=== PATIENT | female | born 1970 | race Caucasian/White ===

== ENCOUNTER 2019-03-25 04:30 | Emergency (ER) | payer MEDICARE, MEDICAID ==
[~2019-03-25] VITALS: Ht 168.9 cm; Wt 136.1 kg
[2019-03-25] MEDS ORDERED: HYDROcodone/APAP 5 MG/325 MG (LORTAB) TAB PO ONE (04:45)
[2019-03-25] MEDS ORDERED: hydrOXYzine (VISTARIL) 25 MG capsule/tablet PO ONE (04:45)
[2019-03-25] MEDS ORDERED: LIDOCAINE 2% VISCOUS 15 ML UDC PO ONE (04:45)
--- NOTE | 2019-03-25 04:48 | ED EENT ---
History of Present Illness General Stated Complaint: TOOTH ABCESS Source: patient Exam Limitations: no limitations History of Present Illness Date Seen by Provider: Mar 25, 2019 Time Seen by Provider: 04:36 Initial Comments Patient presents to ER by private conveyance with her significant other chief complaint of bilateral lower mandibular molars being impacted causing pain and some moderate swelling. She's pushed around with has not had any abscess that she could drain on her own. This has been going on for several days, progressively worsening. She has not seen a dentist yet. She's not been on antibiotics recently and has no and/or allergy to antibiotic. She's tried Tylenol, ibuprofen, topical gels alcohol with only minimal relief. Patient has a history of agoraphobia, high blood pressure, hypothyroidism since moving from [place], [place] to [place], [place] she has not established care with a physician. She is not on any medications at this time. She does not take blood thinners. Allergies and Home Medications Allergies Coded Allergies: Codeine (Verified Allergy, Unknown, 09/09/06) Patient Home Medication List Home Medication List Reviewed: Yes Review of Systems Review of Systems Constitutional: No chills, No fever, No malaise Eyes: Denies Blurred Vision, Denies Drainage Ears: Denies Dizziness, Denies Pain Nose: denies clots, denies congestion Mouth: see HPI, pain, swelling Past Jrcffbl-Zhjmzy-Mvhero Hx Patient Social History Alcohol Use: Denies Use Recreational Drug Use: No Recent Foreign Travel: No Contact w/Someone Who Travel: No Physical Exam Height, Weight, BMI Height: '" Weight: lbs. oz. kg; BMI Method: General Appearance: WD/WN, mild distress Eyes: bilateral eye normal inspection, bilateral eye PERRL, bilateral eye EOMI Ears: bilateral ear auricle normal, bilateral ear canal normal, bilateral ear TM normal Nose: normal inspection; No active bleeding Mouth/Throat: other (extensive dental caries bilateral lower molars with some mild gingival swelling but no palpable abscess.) Neck: full range of motion, normal inspection Progress/Results/Core Measures Results/Orders My Orders Orders - MODESTO CAMACHO Hydroxyzine Cap/Tab (Vistaril) (03/25/19 04:45) Hydrocodone/Apap 5/325 Tablet (Lortab 5 (03/25/19 04:45) Lidocaine 2% Viscous 15 Ml (Xylocaine Vi (03/25/19 04:45) Progress Progress Note : Time: 04:45 Progress Note Viscous lidocaine, hydrocodone, put her on some antibiotics and have her follow- up with a dentist in one week. Departure Impression Primary Impression: Dental abscess Disposition: 01 HOME, SELF-CARE Condition: Stable Departure-Patient Inst. Decision time for Depature: 04:46 Referrals: NO,LOCAL PHYSICIAN (PCP) Primary Care Physician Patient Instructions: Tooth Abscess (DC) Add. Discharge Instructions: Start taking the amoxicillin one capsule 3 times a day. Plan to follow up with a dentist in 1-2 weeks. Continue to use ibuprofen 800 mg up to every 8 hours as needed for pain. Warm compresses can help. Use the viscous lidocaine, 1 g on some gauze applied directly over the tooth that hurts every 2 hours as necessary for pain. Use the hydrocodone one to 2 tablets every 6 hours as needed for breakthrough pain that you cannot tolerate. Scripts Amoxicillin (Amoxicillin) 500 Mg Capsule 500 MG PO TID for 7 Days, #21 CAP 0 Refills Prov: MODESTO CAMACHO 03/25/19 Hydrocodone Bit/Acetaminophen (Hydrocodone/Acetaminophen 5/325mg Tablet) 1 Tab Tab 1-2 EACH PO Q6H PRN for BREAKTHROUGH PAIN MDD 10, #15 TAB 0 Refills Prov: MODESTO CAMACHO 03/25/19 MODESTO CAMACHO Mar 25, 2019 04:48
[2019-03-25] MEDS ORDERED: AMOX500C2 PO (04:50)
[2019-03-25] MEDS ORDERED: ACHD5005 PO (04:50)
[2019-03-25] MEDS ORDERED: FLUC200T PO (04:58)
[2019-03-25 05:02] VITALS: BP 201/166
== END 2019-03-25 04:58 | disposition home or self-care (01) ==
LOC: EDUNIT# 04:30 → ER FS 04:32
DX: K04.7 Periapical abscess without sinus (principal); E03.9 Hypothyroidism, unspecified; F40.00 Agoraphobia, unspecified; Z88.5 Allergy status to narcotic agent
CPT/HCPCS: 99283

== ENCOUNTER 2019-04-08 10:46 | Emergency (ER) | payer MEDICARE, MEDICAID ==
[~2019-04-08] VITALS: Ht 170.2 cm; Wt 136.1 kg
[~2019-04-08 10:46] MED LIST: ACHD5005 PO; AMOX500C2 PO; FLUC200T PO
--- NOTE | 2019-04-08 11:18 | ED EENT ---
History of Present Illness General Chief Complaint: Facial Problems Stated Complaint: FACIAL SWELLING Source: patient, RN notes reviewed Exam Limitations: no limitations History of Present Illness Date Seen by Provider: April 08, 2019 Time Seen by Provider: 11:13 Initial Comments Patient presents c/ c/o worsening right lower dental pain and facial swelling since last PM. Apparently recently seen here c/ similar symptoms on her left side and was prescribed Amoxil. States she called her dentist today and he wanted her evaluated here and he might be able to get her in later this afternoon. Timing/Duration: gradual (since last PM) Severity: severe Location: mouth, facial Prearrival Treatment: other (none) Modifying Factors: Improves With Other (nothing helps; worsens c/ time.) Associated Symptoms: denies symptoms (x/ as noted. ), facial pain/swelling, tooth pain Allergies and Home Medications Allergies Coded Allergies: codeine (Verified Allergy, Unknown, 09/09/06) prednisone (Verified Adverse Reaction, Unknown, agitation, 04/08/19) Home Medications Amoxicillin 500 Mg Capsule, 500 MG PO TID Prescribed by: MODESTO CAMACHO on 03/25/19 0450 Clindamycin HCl 150 Mg Capsule, 300 MG PO Q6H Prescribed by: GELY FOSTER on 04/08/19 1242 Fluconazole 200 Mg Tablet, 200 MG PO ONCE Prescribed by: MODESTO CAMACHO on 03/25/19 0458 Hydrocodone Bit/Acetaminophen 1 Tab Tab, 1-2 EACH PO Q6H PRN for BREAKTHROUGH PAIN Prescribed by: MODESTO CAMACHO on 03/25/19 0450 Patient Home Medication List Home Medication List Reviewed: Yes Review of Systems Review of Systems Constitutional: see HPI Mouth: see HPI, pain (right lower), swelling (right lower) : No All Other Systems Reviewed Negative Unless Noted: Yes (Negative excepted noted.) Physical Exam Vital Signs Vital Signs - First Documented 04/08/19 11:15 Temp 99.0 Pulse 84 Resp 18 B/P (MAP) 173/133 (146) Pulse Ox 95 O2 Delivery Room Air Height, Weight, BMI Height: 5'6.50" Weight: 300lbs. oz. 136.361400oh; BMI Method:Actual General Appearance: WD/WN, moderate distress, obese Mouth/Throat: other (right lower mandible swelling in area of large cavity; poor dentation noted in teeth remaining. ) Cardiovascular: regular rate, rhythm Respiratory: no respiratory distress Gastrointestinal: other (morbidly obese) Neurologic/Psychiatric: no motor/sensory deficits, alert, depressed affect Skin: warm/dry; No rash Progress/Results/Core Measures Results/Orders My Orders Orders - GELY FOSTER DO Clindamycin Capsule (Cleocin Capsule) (04/08/19 11:30) Ct Maxillofacial Wo (04/08/19 11:16) Ketorolac Injection (Toradol Injection) (04/08/19 11:45) Medications Given in ED Vital Signs/I&O Progress Progress Note : Progress Note Seemed improved pain dumont p/ the injection of Toradol. Diagnostic Imaging Diagonstic Imaging: CT Plain Films/CT/US/NM/MRI: facial bones (see report) Departure Impression Primary Impression: Dental infection c/ facial cellulitis Disposition: HOME, SELF-CARE Condition: Stable Departure-Patient Inst. Decision time for Depature: 12:36 [place] [facility] [place] Instructions: Tooth Abscess (DC) Add. Discharge Instructions: All discharge instructions reviewed with patient and/or family. Voiced understanding. NEED TO FOLLOW UP WITH A DENTIST FOR DEFINITIVE EVALUATION AND TREATMENT. RECOMMEND 600 mg OF IBUPROFEN &/OR 1000 mg OF TYLENOL EVERY 6 HOURS NEEDED FOR PAIN/SWELLING. DO NOT EXCEED 4000 mg OF TYLENOL IN A 24 HOUR PERIOD. CURRENTLY HAVE AN APPOINTMENT WITH JAHAIRA REZA ON APRIL 10 @ 11:00 IN REGARDS TO YOUR BLOOD PRESSURE. Scripts Clindamycin HCl (Clindamycin HCl) 150 Mg Capsule 300 MG PO Q6H for dental infection, #80 CAP 0 Refills Prov: GELY FOSTER DO 04/08/19 GELY FOSTER DO April 08, 2019 11:18
[2019-04-08] MEDS ORDERED: CLINDAMYCIN 150 MG (CLEOCIN) CAP PO ONE (11:30)
[2019-04-08] MEDS ORDERED: KETOROLAC 30 MG/ML VIAL IM ONE (11:45)
--- NOTE | 2019-04-08 12:30 | Diagnostic Imaging Report ---
PROCEDURE: CT maxillofacial without contrast. TECHNIQUE: Multiple contiguous axial images were obtained through the facial bones without the use of intravenous contrast. Auto Exposure Controls were utilized during the CT exam to meet ALARA standards for radiation dose reduction. INDICATION: Facial swelling. COMPARISON: None. FINDINGS: The pterygoid plates and mandible are intact. No orbital or maxillary sinus fractures are seen. No fluid levels are seen in the paranasal sinuses. There is extensive hyperostosis frontalis. The globes are intact. There is marked soft tissue edema overlying the right mandible. No soft tissue gas is seen. There is soft tissue density in this region, which may represent phlegmon. While no drainable fluid collection is seen, this is suboptimally evaluated in the absence of intravenous contrast. Multiple mildly prominent lymph nodes are seen which are likely reactive. No osseous erosion is seen. Multiple dental caries are noted, but no periapical lucencies are seen. IMPRESSION: 1. Marked inflammation/phlegmon in the soft tissues overlying the right mandible. No drainable fluid collection is seen on this noncontrast exam. There is no soft tissue gas. 2. Dental caries with no periapical lucency or cortical erosion seen. Dictated by: Dictated on workstation # [id number]
--- NOTE | 2019-04-08 12:30 | NUR ---
Noted patient's B/P 158/100, patient states she does not currently have a primary care provider and no longer has a prescription for her lisinopril. Offered to make patient an appointment with a [facility] provider in the clinic, patient is agreeable. [facility] clinic called by this RN, patient given appointment information for Wednesday, April 10, 2019 at 11:00 am with Nevaeh Lyon APRN.
[2019-04-08 12:39] VITALS: BP 173/133
--- NOTE | 2019-04-08 12:39 | NUR ---
Patient left ED against medical advice at this time, refused to sign AMA form, stated "maybe you should have gotten me a warm blanket sooner" as she was leaving. Patient had requested a warm blanket 10 minutes prior to leaving.
[2019-04-08] MEDS ORDERED: CLIN150C17 PO (12:42)
--- NOTE | 2019-04-08 12:49 | NUR ---
Called patient's phone number, phone answered by . 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
== END 2019-04-08 12:39 | disposition left against medical advice (07) ==
LOC: EDUNIT# 10:46 → ER FS 10:47
DX: K02.9 Dental caries, unspecified (principal); L03.211 Cellulitis of face; Z88.5 Allergy status to narcotic agent; Z88.8 Allergy status to other drugs, medicaments and biological substances
CPT/HCPCS: 70486; 96372

== ENCOUNTER 2019-09-12 17:56 | Emergency (ER) | payer MEDICARE, MEDICAID ==
[~2019-09-12] VITALS: Ht 171 cm; Wt 141.4 kg
[~2019-09-12 17:56] MED LIST changes: +CLIN150C17 PO
[2019-09-12] MEDS ORDERED: CEPHALEXIN 250 MG (KEFLEX) CAP PO ONE (18:15)
[2019-09-12] MEDS ORDERED: CLINDAMYCIN 150 MG (CLEOCIN) CAP PO ONE (18:15)
[2019-09-12] MEDS ORDERED: IBUPROFEN 800 MG (MOTRIN) TAB PO ONE (18:15)
[2019-09-12] MEDS ORDERED: lisINopril 20 MG (PRINIVIL) TABLET PO SCH (18:15)
[2019-09-12] MEDS ORDERED: HYDROcodone/APAP 5 MG/325 MG (LORTAB) TAB PO ONE (18:15)
[2019-09-12] MEDS ORDERED: cloNIDine 0.1 MG (CATAPRES) TAB PO ONE (18:15)
--- NOTE | 2019-09-12 18:17 | ED Integumentary General ---
General Chief Complaint: Skin/Wound Problems Stated Complaint: POSS INSECT BITE ON LT BREAST History of Present Illness Date Seen by Provider: Sep 12, 2019 Time Seen by Provider: 18:00 Initial Comments The patient is a 49-year-old female with a history of hypertension on lisinopril and clonidine as well as tobacco use. She is not diabetic. She presents with concern for acute onset of a painful, erythematous, swollen lesion to the lateral aspect of her left breast with onset about 3 days ago and worsening since then. No associated fevers, nausea or vomiting or other systemic symptoms. Patient states that the lesion looked like a small pimple at onset and simply grew bigger. She has been taking ibuprofen without relief of symptoms. Patient's blood pressure is elevated upon emergency department evaluation without signs or symptoms of acute end organ damage. She states she does not think she took her home blood pressure medication today as she was supposed to. Allergies and Home Medications Allergies Coded Allergies: codeine (Verified Allergy, Unknown, 09/09/06) prednisone (Verified Adverse Reaction, Unknown, agitation, 04/08/19) Home Medications Amoxicillin 500 Mg Capsule, 500 MG PO TID Prescribed by: MODESTO CAMACHO on 03/25/19 0450 Clindamycin HCl 150 Mg Capsule, 300 MG PO Q6H Prescribed by: GELY FOSTER on 04/08/19 1242 Fluconazole 200 Mg Tablet, 200 MG PO ONCE Prescribed by: MODESTO CAMACHO on 03/25/19 0458 Hydrocodone Bit/Acetaminophen 1 Tab Tab, 1-2 EACH PO Q6H PRN for BREAKTHROUGH PAIN Prescribed by: MODESTO CAMACHO on 03/25/19 0450 Patient Home Medication List Home Medication List Reviewed: Yes Review of Systems Review of Systems Constitutional: see HPI All Other Systems Reviewed Negative Unless Noted: Yes (Negative excepted noted.) Past Fbxpqjj-Rtyjze-Zxprgn Hx Past Med/Social Hx: Reviewed Nursing Past Med/Soc Hx Patient Social History Drug of Choice: marijuana Type Used: Cigarettes 2nd Hand Smoke Exposure: Yes Recent Foreign Travel: No Contact w/Someone Who Travel: No Recent Hopitalizations: No Seasonal Allergies Seasonal Allergies: No Past Medical History Surgeries: Yes Hysterectomy, Tonsillectomy Respiratory: No Cardiac: Yes Hypertension Neurological: No [employer]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 Head is normocephalic and atraumatic. Neck is supple and nontender. Oropharynx is moist. Lungs are clear to auscultation in all stations. There is a normal S1 and S2 without rubs or gallops and capillary refill is appropriate, less than 2 seconds globally. Evaluation of the left breast with nursing dish up person present demonstrates an approximately 5 cm indurated erythematous tender lesion to the lateral aspect of the left breast without any associated fluctuance. Evaluation of this lesion with bedside linear ultrasound demonstrates no fluid collection suggestive of absence and requiring drainage. Abdomen is soft, nontender and nondistended. Skin is warm and dry without cyanosis, clubbing or edema. Psychiatrically, the patient demonstrates appropriate mood and affect and is alert. Progress/Results/Core Measures Results/Orders My Orders Orders - RICHARD GILMORE MD Lisinopril Tablet (Zestril Tablet) (09/12/19 18:15) Clonidine Tablet (Catapres Tablet) (09/12/19 18:15) Hydrocodone/Apap 5/325 Tablet (Lortab 5 (09/12/19 18:15) Ibuprofen Tablet (Motrin Tablet) (09/12/19 18:15) Cephalexin Capsule (Keflex Capsule) (09/12/19 18:15) Clindamycin Capsule (Cleocin Capsule) (09/12/19 18:15) Progress Progress Note : Progress Note Clinical examination is suggestive of a localized cellulitis of the patient's lateral left breast. Bedside ultrasound reveals no fluid collection suggestive of abscess. We'll place the patient on oral antibiotics and we'll prescribe medication for pain. For elevated blood pressure, we'll give a dose of the patient's home blood pressure medications at this time. She is counseled to follow-up her blood pressure very closely in the clinic with her primary care physician in the next 2-4 days and she is also to follow-up with Gen. surgery in the clinic on Saturday or Saturday for further evaluation and treatment of her left breast lesion. She understands that if she feels worse is that of better or d evelops other new symptoms of concern that she will need to return immediately for reevaluation. All questions are answered. We will proceed with discharge home at this time. Departure Impression Primary Impression: Cellulitis of left breast Additional Impression: Benign essential hypertension Disposition: HOME, SELF-CARE Condition: Improved Departure-Patient Inst. Referrals: JAHAIRA REZA APRN (Family) Primary Care Physician LESLY STEWARD DO Patient Instructions: Cellulitis (Skin Infection), Adult (DC) Add. Discharge Instructions: Please follow up with your primary care physician in the next 2-4 days regarding your elevated blood pressure. Please follow up with Dr. Steward of general surgery at [facility] regarding your breast infection. Call his clinic on Saturday for a close follow-up appointment and tell the clinical appeals reviewer that per Dr. Steward you are to be worked in on Saturday or Saturday. Return immediately to the emergency department with worsening symptoms or other new concerns. Scripts Hydrocodone/Acetaminophen ([place] 5-325 Tablet) 1 Each Tablet 1 TAB PO Q4-6HR for Pain MDD 10 TABS, #12 TAB Prov: RICHARD GILMORE MD 09/12/19 Ibuprofen (Ibuprofen) 800 Mg Tablet 800 MG PO Q8H PRN for PAIN, #30 TAB 0 Refills Prov: RICHARD GILMORE MD 09/12/19 Cephalexin (Keflex) 500 Mg Capsule 500 MG PO Q6H for 10 Days, #40 CAP Prov: RICHARD GILMORE MD 09/12/19 Clindamycin HCl (Clindamycin HCl) 150 Mg Capsule 450 MG PO Q8H for 10 Days, #90 CAP Prov: RICHARD GILMORE MD 09/12/19 RICHARD GILMORE MD Sep 12, 2019 18:17
[2019-09-12] MEDS ORDERED: CEPH-507 PO (18:27)
[2019-09-12] MEDS ORDERED: HYDR-4226 PO (18:27)
[2019-09-12] MEDS ORDERED: IBUP-1780 PO (18:27)
[2019-09-12] MEDS ORDERED: CLIN150C17 PO (18:27)
[2019-09-12 18:45] VITALS: BP 186/144
== END 2019-09-12 18:45 | disposition home or self-care (01) ==
LOC: EDUNIT# 17:56 → ER FS 17:58
DX: N61.0 Mastitis without abscess (principal); I10 Essential (primary) hypertension; E03.9 Hypothyroidism, unspecified; Z88.5 Allergy status to narcotic agent; Z88.8 Allergy status to other drugs, medicaments and biological substances; Z87.39 Personal history of other diseases of the musculoskeletal system and connective tissue; Z77.22 Contact with and (suspected) exposure to environmental tobacco smoke (acute) (chronic); Z90.710 Acquired absence of both cervix and uterus; Z90.89 Acquired absence of other organs
CPT/HCPCS: 99283

== ENCOUNTER 2019-10-07 15:07 | Emergency (ER) | payer MEDICARE, MEDICAID ==
[~2019-10-07] VITALS: Ht 172.2 cm; Wt 138.4 kg
[~2019-10-07 15:07] MED LIST changes: +CEPH-507 PO; +HYDR-4226 PO; +IBUP-1780 PO
[2019-10-07] MEDS ORDERED: ASPIRIN 81 MG CHEW (CHILDREN'S ASA) PO ONE (16:00)
[2019-10-07] MEDS ORDERED: LORazepam INJ 2 MG/ML (ATIVAN) VIAL IVP PRN (16:00)
--- NOTE | 2019-10-07 16:30 | NUR ---
PER NOTIFIED PT'S URINE WAS VERY DARK.
[2019-10-07 16:39] LABS: BASOPHILS # (AUTO) 0.1 10^3/uL (0.0-0.1); BASOPHILS % (AUTO) 1 % (0-10); EOSINOPHILS # (AUTO) 0.1 10^3/uL (0.0-0.3); EOSINOPHILS % (AUTO) 1 % (0-10); HEMATOCRIT 43 % (35-52); HEMOGLOBIN 14.2 G/DL (11.5-16.0); LYMPHOCYTES # (AUTO) 2.7 X 10^3 (1.0-4.0); LYMPHOCYTES % (AUTO) 26 % (12-44); MEAN CORPUSCULAR HEMOGLOBIN 29 PG (25-34); MEAN CORPUSCULAR HGB CONC 33 G/DL (32-36); MEAN CORPUSCULAR VOLUME 89 FL (80-99); MEAN PLATELET VOLUME 9.8 FL (7.4-10.4); MONOCYTES # (AUTO) 1.1 X 10^3 (0.0-1.0); MONOCYTES % (AUTO) 10 % (0-12); NEUTROPHILS # (AUTO) 6.4 X 10^3 (1.8-7.8); NEUTROPHILS % (AUTO) 62 % (42-75); PLATELET COUNT 310 10^3/uL (130-400); RED CELL DISTRIBUTION WIDTH 14.6 % (10.0-14.5); WHITE BLOOD COUNT 10.3 10^3/uL (4.3-11.0)
[2019-10-07] MEDS ORDERED: NS IV 1000 ML 1,000 ML IV SCH (16:45)
[2019-10-07 16:47] LABS: AMPHETAMINE SCREEN, URINE POSITIVE (NEGATIVE); BARBITURATE SCREEN URINE NEGATIVE (NEGATIVE); BENZODIAZEPINES SCREEN URINE POSITIVE (NEGATIVE); CANNABINOID SCREEN, URINE POSITIVE (NEGATIVE); COCAINE SCREEN URINE NEGATIVE (NEGATIVE); METHADONE STAT NEGATIVE (NEGATIVE); METHAMPHETAMINE SCREEN URINE S POSITIVE (NEGATIVE); OPIATE SCREEN URINE NEGATIVE (NEGATIVE); OXYCODONE STAT NEGATIVE (NEGATIVE); PROPOXYPHENE STAT NEGATIVE (NEGATIVE); TRICYCLIC ANTIDEPRESSANTS SCRE POSITIVE (NEGATIVE)
--- NOTE | 2019-10-07 16:50 | Diagnostic Imaging Report ---
INDICATION: Altered mental status. Portable chest obtained at 4:36 p.m. FINDINGS: Heart and mediastinal silhouette are normal in appearance. The lungs are clear. There is no pneumothorax or pleural fluid. IMPRESSION: Negative chest. Dictated by: Dictated on workstation # [id number]
[2019-10-07 16:58] LABS: ALANINE AMINOTRANSFERASE 29 U/L (0-55); ALBUMIN 4.8 GM/DL (3.2-4.5); ALKALINE PHOSPHATASE 92 U/L (40-136); AMYLASE 17 U/L (25-125); BILIRUBIN,TOTAL 0.7 MG/DL (0.1-1.0); BUN/CREATININE RATIO 18; CARBON DIOXIDE 21 MMOL/L (21-32); CHLORIDE 109 MMOL/L (98-107); CREATININE SERUM 0.94 MG/DL (0.60-1.30); GFR ESTIMATED > 60; GLUCOSE 105 MG/DL (70-105); MAGNESIUM 2.2 MG/DL (1.6-2.4); SODIUM 142 MMOL/L (135-145); TOTAL PROTEIN 7.8 GM/DL (6.4-8.2)
--- NOTE | 2019-10-07 16:59 | ED General ---
General Chief Complaint: Altered Mental Status Stated Complaint: CONFUSION-FORGETFUL Nursing Triage Note: Pt to ED with . Pt poor historian. Pt reports not knowing what is going on. Pt reports having thoughts in head and doesn't know if they are real or not. reports pt did meth last night. Pt normally does "hot rails" but was in a place that the meth couldn't be smoked so put meth in a bottle of pop and pt drank. reports pt's behavior has not been normal since. reports pt does have a hx of mental illness. Pt reports not knowing what is real. "I don't know what I know." Pt denies suicidal ideation. Pt also reports chest pain. Nursing Sepsis Screen: No Definite Risk Source of Information: Patient Exam Limitations: No Limitations History of Present Illness Date Seen by Provider: Oct 07, 2019 Time Seen by Provider: 16:56 Initial Comments To ER with reports of confusion and forgetfulness. Her brings her here, patient states she doesn't know why she is here, she doesn't know what's going on other than she doesn't feel quite right. states that she doesn't recognize them were family members. This began yesterday. They have been using methamphetamine consistently day and night for the past 4 days, she hasn't slept for about 4 days. History of bipolar disorder. States that the only thing that gets her out of bed is methamphetamine but it's been taking more and more to get her to be able to get up and do things. Timing/Duration: 1-2 Days Associated Systoms: Denies Symptoms Allergies and Home Medications Allergies Coded Allergies: codeine (Verified Allergy, Unknown, 09/09/06) prednisone (Verified Adverse Reaction, Unknown, agitation, 04/08/19) Home Medications Amoxicillin 500 Mg Capsule, 500 MG PO TID Prescribed by: MODESTO CAMACHO on 03/25/19 0450 Cephalexin 500 Mg Capsule, 500 MG PO Q6H Prescribed by: RICHARD GILMORE on 09/12/19 182 Clindamycin HCl 150 Mg Capsule, 300 MG PO Q6H Prescribed by: GELY FOSTER on 04/08/19 1242 Clindamycin HCl 150 Mg Capsule, 450 MG PO Q8H Prescribed by: RICHARD GILMORE on 09/12/191826 Fluconazole 200 Mg Tablet, 200 MG PO ONCE Prescribed by: MODESTO CAMACHO on 03/25/19457 Hydrocodone Bit/Acetaminophen 1 Tab Tab, 1-2 EACH PO Q6H PRN for BREAKTHROUGH PAIN Prescribed by: MODESTO CAMACHO on 03/25/19449 Hydrocodone/Acetaminophen 1 Each Tablet, 1 TAB PO Q4-6HR Prescribed by: RICHARD GILMORE on 09/12/191826 Ibuprofen 800 Mg Tablet, 800 MG PO Q8H PRN for PAIN Prescribed by: RICHARD GILMORE on 09/12/191826 Patient Home Medication List Home Medication List Reviewed: Yes Review of Systems Review of Systems Constitutional: see HPI EENTM: see HPI Respiratory: no symptoms reported Cardiovascular: no symptoms reported Genitourinary: no symptoms reported Musculoskeletal: no symptoms reported Skin: no symptoms reported Psychiatric/Neurological: See HPI Hematologic/Lymphatic: No Symptoms Reported Immunological/Allergic: no symptoms reported Past Eijgxsp-Lipxqp-Emnmmv Hx Patient Social History Alcohol Use: Rarely Uses Recreational Drug Use: Yes Drug of Choice: marijuana, meth Smoking Status: Current Everyday Smoker Type Used: Cigarettes 2nd Hand Smoke Exposure: No Recent Foreign Travel: No Contact w/Someone Who Travel: No Recent Infectious Disease Expo: No Recent Hopitalizations: No Seasonal Allergies Seasonal Allergies: No Past Medical History Surgeries: Yes Hysterectomy, Tonsillectomy Respiratory: No Cardiac: Yes Hypertension Neurological: No 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 oz. 136.207017pr; 46.00 BMI Method:Stated General Appearance: No Apparent Distress, WD/WN, Other (alert, hyperactive looking around the room, nose or name, knows that she is in the hospital) Eyes: Bilateral Eye Normal Inspection, Bilateral Eye PERRL HEENT: PERRL/EOMI, TMs Normal Neck: Full Range of Motion, Normal Inspection Respiratory: Normal Breath Sounds, No Accessory Muscle Use, No Respiratory Distress Cardiovascular: Regular Rate, Rhythm, Normal Peripheral Pulses Gastrointestinal: Non Tender, Soft Extremity: Normal Capillary Refill, Normal Inspection Neurologic/Psychiatric: Alert Skin: Normal Color, Warm/Dry (all started) Progress/Results/Core Measures Suspected Sepsis Recent Fever Within 48 Hours: No Infection Criteria Present: None New/Unexplained Altered Menta: No Sepsis Screen: No Definite Risk SIRS Temperature: Pulse: 100 Respiratory Rate: 25 Laboratory Tests 10/07/19 16:30: White Blood Count 10.3 Blood Pressure 217 /143 Mean: 167 Laboratory Tests 10/07/19 16:30: Creatinine 0.94, INR Comment 1.1, Platelet Count 310, Total Bilirubin 0.7 Results/Orders Lab Results Laboratory Tests Test 10/07/19 16:21 10/07/19 16:30 Range/Units Urine Opiates Screen NEGATIVE NEGATIVE Urine Oxycodone Screen NEGATIVE NEGATIVE Urine Methadone Screen NEGATIVE NEGATIVE Urine Propoxyphene Screen NEGATIVE NEGATIVE Urine Barbiturates Screen NEGATIVE NEGATIVE Ur Tricyclic Antidepressants Screen POSITIVE H NEGATIVE Urine Phencyclidine Screen NEGATIVE NEGATIVE Urine Amphetamines Screen POSITIVE H NEGATIVE Urine Methamphetamines Screen POSITIVE H NEGATIVE Urine Benzodiazepines Screen POSITIVE H NEGATIVE Urine Cocaine Screen NEGATIVE NEGATIVE Urine Cannabinoids Screen POSITIVE H NEGATIVE White Blood Count 10.3 4.3-11.0 10^3/uL Red Blood Count 4.86 4.35-5.85 10^6/uL Hemoglobin 14.2 11.5-16.0 G/DL Hematocrit 43 35-52 % Mean Corpuscular Volume 89 80-99 FL Mean Corpuscular Hemoglobin 29 25-34 PG Mean Corpuscular Hemoglobin Concent 33 32-36 G/DL Red Cell Distribution Width 14.6 H 10.0-14.5 % Platelet Count 310 130-400 10^3/uL Mean Platelet Volume 9.8 7.4-10.4 FL Neutrophils (%) (Auto) 62 42-75 % Lymphocytes (%) (Auto) 26 12-44 % Monocytes (%) (Auto) 10 0-12 % Eosinophils (%) (Auto) 1 0-10 % Basophils (%) (Auto) 1 0-10 % Neutrophils # (Auto) 6.4 1.8-7.8 X 10^3 Lymphocytes # (Auto) 2.7 1.0-4.0 X 10^3 Monocytes # (Auto) 1.1 H 0.0-1.0 X 10^3 Eosinophils # (Auto) 0.1 0.0-0.3 10^3/uL Basophils # (Auto) 0.1 0.0-0.1 10^3/uL Prothrombin Time 14.3 12.2-14.7 SEC INR Comment 1.1 0.8-1.4 Activated Partial Thromboplast Time 30 24-35 SEC D-Dimer 1.15 H 0.00-0.49 UG/ML Sodium Level 142 135-145 MMOL/L Potassium Level 4.0 3.6-5.0 MMOL/L Chloride Level 109 H 98-107 MMOL/L Carbon Dioxide Level 21 21-32 MMOL/L Anion Gap 12 5-14 MMOL/L Blood Urea Nitrogen 17 7-18 MG/DL Creatinine 0.94 0.60-1.30 MG/DL Estimat Glomerular Filtration Rate > 60 BUN/Creatinine Ratio 18 Glucose Level 105 70-105 MG/DL Calcium Level 10.0 8.5-10.1 MG/DL Corrected Calcium 8.5-10.1 MG/DL Magnesium Level 2.2 1.6-2.4 MG/DL Total Bilirubin 0.7 0.1-1.0 MG/DL Aspartate Amino Transf (AST/SGOT) 20 5-34 U/L Alanine Aminotransferase (ALT/SGPT) 29 0-55 U/L Alkaline Phosphatase 92 40-136 U/L Myoglobin 59.7 10.0-92.0 NG/ML Troponin I < 0.028 <0.028 NG/ML Total Protein 7.8 6.4-8.2 GM/DL Albumin 4.8 H 3.2-4.5 GM/DL Amylase Level 17 L 25-125 U/L My Orders Orders - PER [employer] Cbc With Automated Diff (10/07/19 15:49) Magnesium (10/07/19 15:49) Chest 1 View, Ap/Pa Only (10/07/19 15:49) Cardiac Profile 1 (10/07/19 15:49) Comprehensive Metabolic Panel (10/07/19 15:49) Myoglobin Serum (10/07/19 15:49) O2 (10/07/19 15:49) Monitor-Rhythm Ecg Trace Only (10/07/19 15:49) Lipid Panel (10/08/19 06:00) Ed Iv/Invasive Line Start (10/07/19 15:49) Amylase (10/07/19 15:49) Fibrin Degradation Products (10/07/19 15:49) Aspirin Chewable Tablet (Baby Aspirin Ch (10/07/19 16:00) Lorazepam Injection (Ativan Injection) (10/07/19 16:00) Drug Screen Stat (Urine) (10/07/19 15:49) Ns Iv 1000 Ml (Sodium Chloride 0.9%) (10/07/19 16:45) Protime With Inr (10/07/19 16:30) Partial Thromboplastin Time (10/07/19 16:30) Olanzapine Orally Dissolve Tab (Zyprexa (10/07/19 17:00) Ct Head Wo (10/07/19 18:02) Medications Given in ED Current Medications Medications Dose Ordered Sig/Jeremy Route Start Time Stop Time Status Last Admin Dose Admin Aspirin 324 mg ONCE ONCE PO 10/07/19 16:00 10/07/19 16:01 DC 10/07/19 16:30 324 MG Lorazepam 1 mg ONCE PRN IVP 10/07/19 16:00 10/07/19 16:30 1 MG Olanzapine 10 mg ONCE ONCE PO 10/07/19 17:00 10/07/19 17:01 DC 10/07/19 17:10 10 MG Vital Signs/I&O 10/07/19 15:15 Temp 37.2 Pulse 100 Resp 25 B/P (MAP) 217/143 (167) Pulse Ox 99 O2 Delivery Room Air Capillary Refill : Less Than 3 Seconds Blood Pressure Mean: 167 POS Departure Impression Primary Impression: Methamphetamine use Additional Impression: Psychosis Disposition: 01 HOME, SELF-CARE Condition: Stable Departure-Patient Inst. Decision time for Depature: 19:12 Referrals: NO,LOCAL PHYSICIAN (PCP) Primary Care Physician JAHAIRA REZA APRN (Family) Primary Care Physician Patient Instructions: Acute Psychosis (DC) Add. Discharge Instructions: 1. Return to ER for any concerns 2. Follow-up with your doctor next week 3. All discharge instructions reviewed with patient and/or family. Voiced understanding. PER [employer] Oct 07, 2019 16:59 POS
[2019-10-07] MEDS ORDERED: OLANZapine 5 MG ODT (ZyPREXA ZYDIS) PO ONE (17:00)
[2019-10-07 17:01] LABS: FIBRIN DEGRADATION PRODUCTS 1.15 UG/ML (0.00-0.49); INR 1.1 (0.8-1.4); PROTHROMBIN TIME PATIENT 14.3 SEC (12.2-14.7)
--- NOTE | 2019-10-07 18:27 | Diagnostic Imaging Report ---
EXAMINATION: CT head without contrast. TECHNIQUE: Multiple contiguous axial images were obtained through the brain without the use of intravenous contrast. All CT scans use one or more of the following dose optimizing techniques: automated exposure control, MA and/or KvP adjustment based on a patient size and exam type, or iterative reconstruction. HISTORY: Altered mental status and confusion COMPARISON: None available. FINDINGS: The schmidt-white matter differentiation is normal. No mass effect or midline shift. The ventricles are normal in size and configuration. Basilar cisterns are patent. There are no intra- or extra-axial fluid collections. There is no intracranial hemorrhage. The orbits are normal. Paranasal sinuses are normal. Mastoid air cells are clear. No soft tissue abnormality is seen. No osseus lesions or fractures are seen. IMPRESSION: 1. No acute intracranial abnormality. Dictated by: Dictated on workstation # [id number]
--- NOTE | 2019-10-07 18:56 | NUR ---
REPORT AND CARE TURNED OVER TO ANGELA LONGORIA.
[2019-10-07] MEDS ORDERED: LORazepam INJ 2 MG/ML (ATIVAN) VIAL IVP ONE (19:15)
[2019-10-07 19:50] VITALS: BP 180/98
== END 2019-10-07 19:50 | disposition home or self-care (01) ==
LOC: EDUNIT# 15:07 → ER 15:09
DX: F15.90 Other stimulant use, unspecified, uncomplicated (principal); F28 Other psychotic disorder not due to a substance or known physiological condition; I10 Essential (primary) hypertension; E03.9 Hypothyroidism, unspecified; F17.210 Nicotine dependence, cigarettes, uncomplicated; Z90.89 Acquired absence of other organs; Z90.710 Acquired absence of both cervix and uterus; Z88.5 Allergy status to narcotic agent; Z88.8 Allergy status to other drugs, medicaments and biological substances
CPT/HCPCS: 36415; 70450; 71045; 80053; 80306; 82150; 83735; 83874; 84484; 85025; 85379; 85610; 85730; 93005

== ENCOUNTER 2020-04-26 13:33 | Emergency (ER) | payer MEDICARE, MEDICAID ==
[~2020-04-26] VITALS: Ht 167.7 cm; Wt 132.0 kg
[2020-04-26] MEDS ORDERED: diphenhydrAMINE 50 MG/ML INJ (BENADRYL) IVP ONE (13:45)
[2020-04-26] MEDS ORDERED: hydrALAZINE (APESOLINE) 20 MG/ML VIAL IV ONE (13:45)
[2020-04-26] MEDS ORDERED: METOCLOPRAMIDE INJ 10 MG/2 ML (REGLAN) IVP ONE (13:45)
--- NOTE | 2020-04-26 13:51 | ED Psychosocial ---
General Stated Complaint: SUICIDAL; MIGRAINE Source: patient Exam Limitations: no limitations (FERMIN JOHNSTON DO) History of Present Illness Date Seen by Provider: April 26, 2020 Time Seen by Provider: 13:35 Initial Comments The patient is a pleasant obese 50-year-old female who presents for evaluation of depression with suicidal thoughts and a headache. She arrives via EMS who note that she is hypertensive. She states that she has a headache "pretty much every day" and that this is similar to headaches she normally experiences. She says that lately she has been depressed and having suicidal thoughts but has no specific plan. She reports multiple previous inpatient psychiatric admissions for depression and suicidal thoughts. She denies fevers or chills, neck pain or stiffness, vision changes, focal weakness or numbness, chest pain or shortness of breath, abdominal or back pain, dizziness, palpitations, cough, nausea or vomiting. She is alert and oriented 4, calm, and appears to be in no distress at this time. She does have a history of hypertension and states that she took her blood pressure medicine earlier today. She is noted to be quite hypertensive upon arrival with a blood pressure of approximately 175/110. The patient's medical history includes bipolar disorder, hypothyroidism, chronic headaches, and hypertension. She does smoke cigarettes. Timing/Duration: other (few days) Severity: moderate Associated Symptoms: anxiety, suicidal ideation (FERMIN JOHNSTON DO) Allergies and Home Medications Allergies Coded Allergies: codeine (Verified Allergy, Unknown, 09/09/06) prednisone (Verified Adverse Reaction, Unknown, agitation, 04/08/19) Home Medications Amoxicillin 500 Mg Capsule, 500 MG PO TID Prescribed by: MODESTO CAMACHO on 03/25/19 0450 Cephalexin 500 Mg Capsule, 500 MG PO Q6H Prescribed by: RICHARD GILMORE on 09/12/19 182 Clindamycin HCl 150 Mg Capsule, 300 MG PO Q6H Prescribed by: GELY FOSTER on 04/08/19 1242 Clindamycin HCl 150 Mg Capsule, 450 MG PO Q8H Prescribed by: RICHARD GILMORE on 09/12/19 182 Fluconazole 200 Mg Tablet, 200 MG PO ONCE Prescribed by: MODESTO CAMACHO on 03/25/19 0458 Hydrocodone Bit/Acetaminophen 1 Tab Tab, 1-2 EACH PO Q6H PRN for BREAKTHROUGH PAIN Prescribed by: MODESTO CAMACHO on 03/25/19 0450 Hydrocodone/Acetaminophen 1 Each Tablet, 1 TAB PO Q4-6HR Prescribed by: RICHARD GILMORE on 09/12/191826 Ibuprofen 800 Mg Tablet, 800 MG PO Q8H PRN for PAIN Prescribed by: RICHARD GILMORE on 09/12/191826 Patient Home Medication List Home Medication List Reviewed: Yes (FERMIN JOHNSTON DO) Review of Systems Constitutional: no symptoms reported Respiratory: no symptoms reported Cardiovascular: no symptoms reported Gastrointestinal: no symptoms reported Genitourinary: no symptoms reported Musculoskeletal: no symptoms reported Skin: no symptoms reported Psychiatric/Neurological: Headache (FERMIN JOHNSTON DO) All Other Systems Reviewed Negative Unless Noted: Yes (FERMIN JOHNSTON DO) Past Hpdvwnp-Pfzlcm-Juyijb Hx Past Med/Social Hx: Reviewed Nursing Past Med/Soc Hx (FERMIN JOHNSTON DO) Patient Social History Drug of Choice: marijuana, meth Type Used: Cigarettes 2nd Hand Smoke Exposure: No Recent Hopitalizations: No (FERMIN JOHNSTON DO) Seasonal Allergies Seasonal Allergies: No (FERMIN JOHNSTON DO) Past Medical History Surgeries: Yes Hysterectomy, Tonsillectomy Respiratory: No Cardiac: Yes Hypertension 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 oz. 136.915030od; 46.00 BMI Method:Stated General Appearance: WD/WN, obese HEENT: PERRL/EOMI, pharynx normal Neck: non-tender, full range of motion, normal inspection Respiratory: lungs clear, normal breath sounds, no respiratory distress, no accessory muscle use Cardiovascular: regular rate, rhythm, no edema, no JVD Gastrointestinal: non tender, soft, no pulsatile mass Extremities: non-tender, no pedal edema Neurologic/Psychiatric: no motor/sensory deficits, alert, normal mood/affect, oriented x 3 Appearance/Memory: appropriate appearance, appropriate insight Behavior/Eye Contact: cooperative, good eye contact, normal speech Skin: normal color, warm/dry (FERMIN JOHNSTON DO) Progress/Results/Core Measures Results/Orders Lab Results Laboratory Tests Test 04/26/20 13:50 Range/Units White Blood Count 6.9 4.3-11.0 10^3/uL Red Blood Count 4.70 4.35-5.85 10^6/uL Hemoglobin 14.1 11.5-16.0 G/DL Hematocrit 43 35-52 % Mean Corpuscular Volume 91 80-99 FL Mean Corpuscular Hemoglobin 30 25-34 PG Mean Corpuscular Hemoglobin Concent 33 32-36 G/DL Red Cell Distribution Width 13.4 10.0-14.5 % Platelet Count 269 130-400 10^3/uL Mean Platelet Volume 9.3 7.4-10.4 FL Neutrophils (%) (Auto) 47 42-75 % Lymphocytes (%) (Auto) 41 12-44 % Monocytes (%) (Auto) 6 0-12 % Eosinophils (%) (Auto) 5 0-10 % Basophils (%) (Auto) 1 0-10 % Neutrophils # (Auto) 3.2 1.8-7.8 X 10^3 Lymphocytes # (Auto) 2.8 1.0-4.0 X 10^3 Monocytes # (Auto) 0.5 0.0-1.0 X 10^3 Eosinophils # (Auto) 0.3 0.0-0.3 10^3/uL Basophils # (Auto) 0.1 0.0-0.1 10^3/uL Urine Color YELLOW Urine Clarity CLEAR Urine pH 5.0 5-9 Urine Specific [place] <=1.030 1.016-1.022 Urine Protein 2+ H NEGATIVE Urine Glucose (UA) NEGATIVE NEGATIVE Urine Ketones NEGATIVE NEGATIVE Urine Nitrite NEGATIVE NEGATIVE Urine Bilirubin NEGATIVE NEGATIVE Urine Urobilinogen 0.2 < = 1.0 MG/DL Urine Leukocyte Esterase NEGATIVE NEGATIVE Urine RBC (Auto) NEGATIVE NEGATIVE Urine RBC NONE /HPF Urine WBC NONE /HPF Urine Squamous Epithelial Cells 0-2 /HPF Urine Crystals PRESENT H /LPF Urine Amorphous Sediment FEW AUNG URATES H /LPF Urine Bacteria NEGATIVE /HPF Urine Casts PRESENT /LPF Urine Hyaline Casts 2-5 H /LPF Urine Mucus NEGATIVE /LPF Urine Culture Indicated NO Urine Test NEGATIVE NEGATIVE Sodium Level 142 135-145 MMOL/L Potassium Level 3.9 3.6-5.0 MMOL/L Chloride Level 105 98-107 MMOL/L Carbon Dioxide Level 23 21-32 MMOL/L Anion Gap 14 5-14 MMOL/L Blood Urea Nitrogen 10 7-18 MG/DL Creatinine 1.00 0.60-1.30 MG/DL Estimat Glomerular Filtration Rate 59 BUN/Creatinine Ratio 10 Glucose Level 112 H 70-105 MG/DL Calcium Level 9.3 8.5-10.1 MG/DL Corrected Calcium 8.9 8.5-10.1 MG/DL Total Bilirubin 0.4 0.1-1.0 MG/DL Aspartate Amino Transf (AST/SGOT) 16 5-34 U/L Alanine Aminotransferase (ALT/SGPT) 23 0-55 U/L Alkaline Phosphatase 97 40-136 U/L Total Protein 7.3 6.4-8.2 GM/DL Albumin 4.5 3.2-4.5 GM/DL Salicylates Level 2.7 L 5.0-20.0 MG/DL Urine Opiates Screen NEGATIVE NEGATIVE Urine Oxycodone Screen POSITIVE H NEGATIVE Urine Methadone Screen NEGATIVE NEGATIVE Urine Propoxyphene Screen NEGATIVE NEGATIVE Acetaminophen Level < 10 L 10-30 UG/ML Urine Barbiturates Screen NEGATIVE NEGATIVE Ur Tricyclic Antidepressants Screen POSITIVE H NEGATIVE Urine Phencyclidine Screen NEGATIVE NEGATIVE Urine Amphetamines Screen POSITIVE H NEGATIVE Urine Methamphetamines Screen NEGATIVE NEGATIVE Urine Benzodiazepines Screen NEGATIVE NEGATIVE Urine Cocaine Screen NEGATIVE NEGATIVE Urine Cannabinoids Screen POSITIVE H NEGATIVE Serum Alcohol < 10 <10 MG/DL (ALEX FRAZIER MD) Medications Given in ED Current Medications Medications Dose Ordered Sig/Jeremy Route Start Time Stop Time Status Last Admin Dose Admin Diphenhydramine HCl 25 mg ONCE ONCE IVP 04/26/20 13:45 04/26/20 13:46 DC 04/26/20 14:15 25 MG Hydralazine HCl 20 mg ONCE ONCE IV 04/26/20 13:45 04/26/20 13:46 DC 04/26/20 14:15 20 MG Metoclopramide HCl 10 mg ONCE ONCE IVP 04/26/20 13:45 04/26/20 13:46 DC 04/26/20 14:15 10 MG (ALEX FRAZIER MD) Vital Signs/I&O 04/26/20 13:50 Temp 36.9 Pulse 96 Resp 22 B/P (MAP) 177/135 (149) Pulse Ox 97 O2 Delivery Room Air (ALEX FRAZIER MD) Progress Progress Note : Progress Note @1800 - Pt care transferred to Dr. Frazier at this time. (FERMIN JOHNSTON DO) Progress Note : Time: 18:22 Progress Note 1820 patient was evaluated via telemedicine with psychiatry on-call. They did evaluation and got a good discharge plan for the patient and the patient agrees to follow up with her appointment started in the morning. Patient be discharged home with family. Patient states understanding of all instructions and follow up appointments. (ALEX FRAZIER MD) Comment @1336 - Normal sinus rhythm, rate of 78, normal axis, no acute ischemic findings noted, no STEMI, reviewed and interpreted by myself (FERMIN JOHNSTON DO) Departure Impression Primary Impression: Anxiety Additional Impression: Depression Disposition: 01 HOME, SELF-CARE Condition: Stable Departure-Patient Inst. Decision time for Depature: 18:23 (ALEX FRAZIER MD) Referrals: NO,LOCAL PHYSICIAN (PCP) Primary Care Physician JAHAIRA REZA APRN (Family) Primary Care Physician Add. Discharge Instructions: Follow-up as discussed with psychiatry. He'll multiple scheduled appointments that was discussed with the with nursing staff. Make these appointments as agreed upon. Continue all home medications. FERMIN JOHNSTON DO April 26, 2020 13:51 ALEX FRAZIER MD April 26, 2020 18:24
[2020-04-26 14:05] LABS: HEMATOCRIT 43 % (35-52); HEMOGLOBIN 14.1 G/DL (11.5-16.0); MEAN CORPUSCULAR HEMOGLOBIN 30 PG (25-34); WHITE BLOOD COUNT 6.9 10^3/uL (4.3-11.0)
[2020-04-26 14:06] LABS: BASOPHILS % (AUTO) 1 % (0-10); EOSINOPHILS % (AUTO) 5 % (0-10); LYMPHOCYTES % (AUTO) 41 % (12-44); MEAN CORPUSCULAR HGB CONC 33 G/DL (32-36); MEAN CORPUSCULAR VOLUME 91 FL (80-99); MEAN PLATELET VOLUME 9.3 FL (7.4-10.4); NEUTROPHILS % (AUTO) 47 % (42-75); PLATELET COUNT 269 10^3/uL (130-400); RED CELL DISTRIBUTION WIDTH 13.4 % (10.0-14.5)
[2020-04-26 14:07] LABS: BASOPHILS # (AUTO) 0.1 10^3/uL (0.0-0.1); EOSINOPHILS # (AUTO) 0.3 10^3/uL (0.0-0.3); LYMPHOCYTES # (AUTO) 2.8 X 10^3 (1.0-4.0); MONOCYTES # (AUTO) 0.5 X 10^3 (0.0-1.0); MONOCYTES % (AUTO) 6 % (0-12); NEUTROPHILS # (AUTO) 3.2 X 10^3 (1.8-7.8)
[2020-04-26 14:08] LABS: HCG,QUALITATIVE URINE NEGATIVE (NEGATIVE)
[2020-04-26 14:18] LABS: AMPHETAMINE SCREEN, URINE POSITIVE (NEGATIVE); CANNABINOID SCREEN, URINE POSITIVE (NEGATIVE); OXYCODONE STAT POSITIVE (NEGATIVE); TRICYCLIC ANTIDEPRESSANTS SCRE POSITIVE (NEGATIVE)
[2020-04-26 14:19] LABS: BARBITURATE SCREEN URINE NEGATIVE (NEGATIVE); BENZODIAZEPINES SCREEN URINE NEGATIVE (NEGATIVE); CLARITY,URINE CLEAR; COCAINE SCREEN URINE NEGATIVE (NEGATIVE); COLOR,URINE YELLOW; METHADONE STAT NEGATIVE (NEGATIVE); METHAMPHETAMINE SCREEN URINE S NEGATIVE (NEGATIVE); OPIATE SCREEN URINE NEGATIVE (NEGATIVE); PROPOXYPHENE STAT NEGATIVE (NEGATIVE)
[2020-04-26 14:20] LABS: AMORPHOUS SEDIMENT,UR FEW AMOR URATES /LPF; BACTERIA,URINE NEGATIVE /HPF; BILIRUBIN,URINE NEGATIVE (NEGATIVE); GLUCOSE, URINE (UA) NEGATIVE (NEGATIVE); KETONES,URINE NEGATIVE (NEGATIVE); LEUKOCYTE ESTERASE ,URINE NEGATIVE (NEGATIVE); NITRITE,URINE NEGATIVE (NEGATIVE); PROTEIN,URINE 2+ (NEGATIVE); SQUAMOUS EPITHELIAL CELL,UR 0-2 /HPF
[2020-04-26 14:32] LABS: CARBON DIOXIDE 23 MMOL/L (21-32); CHLORIDE 105 MMOL/L (98-107); POTASSIUM 3.9 MMOL/L (3.6-5.0); SODIUM 142 MMOL/L (135-145)
[2020-04-26 14:33] LABS: ALANINE AMINOTRANSFERASE 23 U/L (0-55); ALBUMIN 4.5 GM/DL (3.2-4.5); ALKALINE PHOSPHATASE 97 U/L (40-136); BILIRUBIN,TOTAL 0.4 MG/DL (0.1-1.0); BUN/CREATININE RATIO 10; CALCIUM 9.3 MG/DL (8.5-10.1); GFR ESTIMATED 59; GLUCOSE 112 MG/DL (70-105); TOTAL PROTEIN 7.3 GM/DL (6.4-8.2)
[2020-04-26 14:34] LABS: ACETAMINOPHEN < 10 UG/ML (10-30); SALICYLATE 2.7 MG/DL (5.0-20.0)
--- NOTE | 2020-04-26 16:18 | NUR ---
Pt call light on, pt's teleconference on Zoom shut down.
--- OUTSIDE RECORDS SUMMARY | 2020-04-26 17:06 | XMS REPORT | Continuity of Care Document ---
Demographics Address [address] [place] [address] x Preferred Language Unknown Marital Status Unknown Islam Affiliation Unknown Race Unknown Ethnic Group Unknown Author Organization Unknown Address Unknown Phone Unavailable Allergies Active Description Code Type Severity Reaction Onset Reported/Identified Relationship to Patient Clinical Status Yes codeine [id number] Drug Allergy Unknown N/A 09/09/2006 Yes prednisone [id number] Drug Allerg y Unknown agitation 04/08/2019 Medications There is no data. Problems Date Dx Coded Attending Type Code Diagnosis Diagnosed By 03/25/2019 MODESTO CAMACHO MD, Ot E03. 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 7 PERIAPICAL ABSCESS WITHOUT SINUS 03/25/2019 MODESTO CAMACHO MD, Ot Z88. 5 ALLERGY STATUS TO NARCOTIC AGENT STATUS 04/08/2019 GELY FOSTER DO Ot K02.9 DENTAL CARIES, UNSPECIFIED 04/08/2019 GELY FOSTER DO, Ot L03.211 CELLULITIS OF FACE 04/08/2019 GELY FOSTER DO Ot R22.0 LOCALIZED SWELLING, MASS AND LUMP, HEAD 04/08/2019 GELY FOSTER DO, Ot Z88.5 ALLERGY STATUS TO NARCOTIC AGENT STATUS 04/08/2019 GELY FOSTER DO, Ot Z88.8 ALLERGY STATUS TO OTH DRUG/MEDS/BIOL SUB 09/12/2019 RICHARD GILMORE MD Ot E03. 9 HYPOTHYROIDISM, UNSPECIFIED 09/12/2019 RICHARD GILMORE MD, Ot I10 ESSENTIAL (PRIMARY) HYPERTENSION 09/12/2019 RICHARD GILMORE MD Ot N61. 0 MASTITIS WITHOUT ABSCESS 09/12/2019 RICHARD GILMORE MD Ot Z77. 22 CNTCT W AND EXPSR TO ENVIRON TOBACCO SMO 09/12/2019 RICHARD GILMORE MD, Ot Z87. 39 PERSONAL HISTORY OF DISEASES OF THE MS S 09/12/2019 RICHARD GILMORE MD, Ot Z88. 5 ALLERGY STATUS TO NARCOTIC AGENT STATUS 09/12/2019 RICHARD GILMORE MD Ot Z88. 8 ALLERGY STATUS TO OTH DRUG/MEDS/BIOL SUB 09/12/2019 RICHARD GILMORE MD Ot Z90.710 ACQUIRED ABSENCE OF BOTH CERVIX AND UTER 09/12/2019 RICHARD GILMORE MD Ot Z90. 89 ACQUIRED ABSENCE OF OTHER ORGANS 09/16/2019 RICHARD GILMORE MD Ot E03. 9 HYPOTHYROIDISM, UNSPECIFIED 09/16/2019 RICHARD GILMORE MD Ot I10 ESSENTIAL (PRIMARY) HYPERTENSION 09/16/2019 RICHARD GILMORE MD Ot N61. 0 MASTITIS WITHOUT ABSCESS 09/16/2019 RICHARD GILMORE MD Ot Z77. 22 CNTCT W AND EXPSR TO ENVIRON TOBACCO SMO 09/16/2019 RICHARD GILMORE MD Ot Z87. 39 PERSONAL HISTORY OF DISEASES OF THE MS S 09/16/2019 RICHARD GILMORE MD, Ot Z88. 5 ALLERGY STATUS TO NARCOTIC AGENT STATUS 09/16/2019 RICHARD GILMORE MD Ot Z88. 8 ALLERGY STATUS TO OTH DRUG/MEDS/BIOL SUB 09/16/2019 RICHARD GILMORE MD, Ot Z90.710 ACQUIRED ABSENCE OF BOTH CERVIX AND UTER 09/16/2019 RICHARD GILMORE MD Ot Z90. 89 ACQUIRED ABSENCE OF OTHER ORGANS 10/07/2019 PER KING APRN Ot E03 .9 HYPOTHYROIDISM, UNSPECIFIED 10/07/2019 PER KING APRN Ot F15.90 OTHER STIMULANT USE, UNSPECIFIED, UNCOMP 10/07/2019 PER KING APRN Ot F17.210 NICOTINE DEPENDENCE, CIGARETTES, UNCOMPL 10/07/2019 PER KING APRN Ot F28 OTH PSYCH DISORDER NOT DUE TO A SUB OR K 10/07/2019 PER KING APRN Ot I10 ESSENTIAL (PRIMARY) HYPERTENSION 10/07/2019 PER KING APRN Ot Z88 .5 ALLERGY STATUS TO NARCOTIC AGENT STATUS 10/07/2019 PER KING APRN Ot Z88 .8 ALLERGY STATUS TO OTH DRUG/MEDS/BIOL SUB 10/07/2019 PER KING APRN Ot Z90.710 ACQUIRED ABSENCE OF BOTH CERVIX AND UTER 10/07/2019 PER KING APRN Ot Z90.89 ACQUIRED ABSENCE OF OTHER ORGANS Procedures There is no data. Results Test Result Range TSH w/ FREE T4 - 09/15/19 09:33 TSH 6.43 mIU/L NRG T4, FREE 1.0 ng/dL 0.8-1.8 Urine drug screening test - 10/07/19 16: 21 Urine phencyclidine detection by screening method NEGATIVE NEGATIVE Urine benzodiazepines detection by screening method POSITIVE NEGATIVE Urine cocaine detection NEGATIVE NEGATI VE Urine amphetamines detection by screening method P OSITIVE NEGATIVE Urine methamphetamine detection by screening method POSITIVE NEGATIVE Urine cannabinoids detection by screening method P OSITIVE NEGATIVE Urine opiates detection by screening method NEGATI VE NEGATIVE Urine barbiturates detection NEGATIVE N EGATIVE Screening urine tricyclic antidepressants detection POSITIVE NEGATIVE Urine methadone detection by screening method NEGA TIVE NEGATIVE Urine oxycodone detection NEGATIVE NEGA TIVE Urine propoxyphene detection NEGATIVE N EGATIVE Complete blood count (CBC) with automate d white blood cell (WBC) differential - 10/07/19 16:30 Blood leukocytes automated count (number/volume) 10.3 10*3/uL 4.3-11.0 Blood erythrocytes automated count (number/volume) 4.86 10*6/uL 4.35-5.85 Venous blood hemoglobin measurement (mass/volume) 14.2 g/dL 11.5-16.0 Blood hematocrit (volume fraction) 43 % 35-52 Automated erythrocyte mean corpuscular volume 89 [ foz_us] 80-99 Automated erythrocyte mean corpuscular h emoglobin (mass per erythrocyte) 29 pg 25-34 Automated erythrocyte mean corpuscular h emoglobin concentration measurement (mass/volume) 33 g/dL 32-36 Automated erythrocyte distribution width ratio 14. 6 % 10.0- 14.5 Automated blood platelet count (count/volume) 310 10*3/uL 130-400 Automated blood platelet mean volume measurement 9.8 [foz_us] 7.4-10.4 Automated blood neutrophils/100 leukocytes 62 % 42-75 Automated blood lymphocytes/100 leukocytes 26 % 12-44 Blood monocytes/100 leukocytes 10 % 0-12 Automated blood eosinophils/100 leukocytes 1 % 0-10 Automated blood basophils/100 leukocytes 1 % 0-10 Blood neutrophils automated count (number/volume) 6.4 10*3 1.8-7.8 Blood lymphocytes automated count (number/volume) 2.7 10*3 1.0-4.0 Blood monocytes automated count (number/volume) 1. 1 10*3 0.0-1.0 Automated eosinophil count 0.1 10*3/uL 0 .0-0.3 Automated blood basophil count (count/volume) 0.1 10*3/uL 0.0-0.1 Comprehensive metabolic panel - 10/07/19 16:30 Serum or plasma sodium measurement (moles/volume) 142 mmol/L 135-145 Serum or plasma potassium measurement (moles/volume) 4.0 mmol/L 3.6-5.0 Serum or plasma chloride measurement (moles/volume) 109 mmol/L 98-107 Carbon dioxide 21 mmol/L 21-32 Serum or plasma anion gap determination (moles/volume) 12 mmol/L 5-14 Serum or plasma urea nitrogen measurement (mass/volume ) 17 mg/dL 7-18 Serum or plasma creatinine measurement (mass/volume) 0.94 mg/dL 0.60-1.30 Serum or plasma urea nitrogen/creatinine mass ratio 18 NRG Serum or plasma creatinine measurement w ith calculation of estimated glomerular filtration rate > NRG Serum or plasma glucose measurement (mass/volume) 105 mg/dL 70-105 Serum or plasma calcium measurement (mass/volume) 10.0 mg/dL 8.5-10.1 Serum or plasma total bilirubin measurement (mass/volu me) 0.7 mg/dL 0.1-1.0 Serum or plasma alkaline phosphatase juana surement (enzymatic activity/volume) 92 U/L 40-136 Serum or plasma aspartate aminotransfera se measurement (enzymatic activity/volume) 20 U/L 5-34 Serum or plasma alanine aminotransferase measurement (enzymatic activity/volume) 29 U/L 0-55 Serum or plasma protein measurement (mass/volume) 7.8 g/dL 6.4-8.2 Serum or plasma albumin measurement (mass/volume) 4.8 g/dL 3.2-4.5 Magnesium - 10/07/19 16:30 Magnesium 2.2 mg/dL 1.6-2.4 Serum or plasma troponin i.cardiac measu rement (mass/volume) - 10/07/19 16:30 Serum or plasma troponin i.cardiac measurement (mass/v olume) < ng/mL <0.028 Myoglobin, serum - 10/07/19 16:30 Myoglobin, serum 59.7 ng/mL 10.0-92.0 Serum or plasma amylase measurement (enz ymatic activity/volume) - 10/07/19 16:30 Serum or plasma amylase measurement (enzymatic activit y/volume) 17 U/L 25-125 PT panel in platelet poor plasma by coag ulation assay - 10/07/19 16:30 Prothrombin time (PT) in platelet poor plasma by coagu lation assay 14.3 s 12.2-14.7 INR in platelet poor plasma or blood by coagulation as say 1.1 0.8-1.4 Activated partial thromboplastin time (a PTT) in platelet poor plasma bycoagulation assay - 10/07/19 16:30 Activated partial thromboplastin time (a PTT) in platelet poor plasma bycoagulation assay 30 s 24-35 Fibrin D-dimer FEU measurement in platel et poor plasma (mass/volume) - 10/07/19 16:30 Fibrin D-dimer FEU measurement in platelet poor plasma (mass/volume) 1.15 ug/mL 0.00-0.49 Complete blood count (CBC) with automate d white blood cell (WBC) differential - 04/26/20 13:50 Blood leukocytes automated count (number/volume) 6.9 10*3/uL 4.3-11.0 Blood erythrocytes automated count (number/volume) 4.70 10*6/uL 4.35-5.85 Venous blood hemoglobin measurement (mass/volume) 14.1 g/dL 11.5-16.0 Blood hematocrit (volume fraction) 43 % 35-52 Automated erythrocyte mean corpuscular volume 91 [ foz_us] 80-99 Automated erythrocyte mean corpuscular h emoglobin (mass per erythrocyte) 30 pg 25-34 Automated erythrocyte mean corpuscular h emoglobin concentration measurement (mass/volume) 33 g/dL 32-36 Automated erythrocyte distribution width ratio 13. 4 % 10.0- 14.5 Automated blood platelet count (count/volume) 269 10*3/uL 130-400 Automated blood platelet mean volume measurement 9.3 [foz_us] 7.4-10.4 Automated blood neutrophils/100 leukocytes 47 % 42-75 Automated blood lymphocytes/100 leukocytes 41 % 12-44 Blood monocytes/100 leukocytes 6 % 0-12 Automated blood eosinophils/100 leukocytes 5 % 0-10 Automated blood basophils/100 leukocytes 1 % 0-10 Blood neutrophils automated count (number/volume) 3.2 10*3 1.8-7.8 Blood lymphocytes automated count (number/volume) 2.8 10*3 1.0-4.0 Blood monocytes automated count (number/volume) 0. 5 10*3 0.0-1.0 Automated eosinophil count 0.3 10*3/uL 0 .0-0.3 Automated blood basophil count (count/volume) 0.1 10*3/uL 0.0-0.1 Urine beta human chorionic gonadotropin (hCG) measurement - 04/26/20 13:50 Urine beta human chorionic gonadotropin (hCG) measurem ent NEGATIVE NEGATIVE Urine drug screening test - 04/26/20 13: 50 Urine phencyclidine detection by screening method NEGATIVE NEGATIVE Urine benzodiazepines detection by screening method NEGATIVE NEGATIVE Urine cocaine detection NEGATIVE NEGATI VE Urine amphetamines detection by screening method P OSITIVE NEGATIVE Urine methamphetamine detection by screening method NEGATIVE NEGATIVE Urine cannabinoids detection by screening method P OSITIVE NEGATIVE Urine opiates detection by screening method NEGATI VE NEGATIVE Urine barbiturates detection NEGATIVE N EGATIVE Screening urine tricyclic antidepressants detection POSITIVE NEGATIVE Urine methadone detection by screening method NEGA TIVE NEGATIVE Urine oxycodone detection POSITIVE NEGA TIVE Urine propoxyphene detection NEGATIVE N EGATIVE Complete urinalysis with reflex to cultu re - 04/26/20 13:50 Urine color determination YELLOW NRG Urine clarity determination CLEAR NR G Urine pH measurement by test strip 5.0 5-9 Specific gravity of urine by test strip <= 1.016-1.022 Urine protein assay by test strip, semi-quantitative 2+ NEGATIVE Urine glucose detection by automated test strip NE GATIVE NEGATIVE Erythrocytes detection in urine sediment by light micr oscopy NEGATIVE NEGATIVE Urine ketones detection by automated test strip NE GATIVE NEGATIVE Urine nitrite detection by test strip NEGATIVE NEGATIVE Urine total bilirubin detection by test strip NEGA TIVE NEGATIVE Urine urobilinogen measurement by automated test strip (mass/volume) 0.2 mg/dL < = 1.0 Urine leukocyte esterase detection by dipstick NEG ATIVE NEGATIVE Automated urine sediment erythrocyte cou nt by microscopy (number/high power field) NONE NRG Automated urine sediment leukocyte count by microscopy (number/high power field) NONE NRG Bacteria detection in urine sediment by light microsco py NEGATIVE NRG Squamous epithelial cells detection in u rine sediment by light microscopy 0-2 NRG Crystals detection in urine sediment by light microsco py PRESENT NRG Casts detection in urine sediment by light microscopy PRESENT NRG Mucus detection in urine sediment by light microscopy NEGATIVE NRG Complete urinalysis with reflex to culture NO NRG Amorphous sediment detection in urine sediment by ligh t microscopy FEW AUNG URATES NRG Hyaline casts detection in urine sediment by light dawson roscopy 2-5 NRG Comprehensive metabolic panel - 04/26/20 13:50 Serum or plasma sodium measurement (moles/volume) 142 mmol/L 135-145 Serum or plasma potassium measurement (moles/volume) 3.9 mmol/L 3.6-5.0 Serum or plasma chloride measurement (moles/volume) 105 mmol/L 98-107 Carbon dioxide 23 mmol/L 21-32 Serum or plasma anion gap determination (moles/volume) 14 mmol/L 5-14 Serum or plasma urea nitrogen measurement (mass/volume ) 10 mg/dL 7-18 Serum or plasma creatinine measurement (mass/volume) 1.00 mg/dL 0.60-1.30 Serum or plasma urea nitrogen/creatinine mass ratio 10 NRG Serum or plasma creatinine measurement w ith calculation of estimated glomerular filtration rate 59 NRG Serum or plasma glucose measurement (mass/volume) 112 mg/dL 70-105 Serum or plasma calcium measurement (mass/volume) 9.3 mg/dL 8.5-10.1 Serum or plasma total bilirubin measurement (mass/volu me) 0.4 mg/dL 0.1-1.0 Serum or plasma alkaline phosphatase juana surement (enzymatic activity/volume) 97 U/L 40-136 Serum or plasma aspartate aminotransfera se measurement (enzymatic activity/volume) 16 U/L 5-34 Serum or plasma alanine aminotransferase measurement (enzymatic activity/volume) 23 U/L 0-55 Serum or plasma protein measurement (mass/volume) 7.3 g/dL 6.4-8.2 Serum or plasma albumin measurement (mass/volume) 4.5 g/dL 3.2-4.5 CALCIUM CORRECTED 8.9 mg/dL 8.5-10.1 Serum or plasma salicylates measurement (mass/volume) - 04/26/20 13:50 Serum or plasma salicylates measurement (mass/volume) 2.7 mg/dL 5.0-20.0 Serum or plasma acetaminophen measuremen t (mass/volume) - 04/26/20 13:50 Serum or plasma acetaminophen measurement (mass/volume ) < ug/mL 10-30 Serum or plasma ethanol measurement (mas s/volume) - 04/26/20 13:50 Serum or plasma ethanol measurement (mass/volume) < mg/dL <10 Encounters ACCT No. Visit Date/Time Discharge Status Pt. Type Provider Facility Loc./Unit Complaint [id number] 04/30/2019 15:00:00 04/30/2019 23:59:5 9 CLS Outpatient [facility] [id number] [id number] 09/15/2019 08:20:00 Document Registration [id number] 10/07/2019 15:09:00 19:50:00 DIS Emergency PER KING APRN [facility] ER CONFUSION-FORGETFUL [id number] 09/12/2019 17:58:00 18:45:00 DIS Emergency MANDO ZHANG, RICHARD Greco [facility] ER FS REDNESS ON LT BREAST [id number] 04/08/2019 10:47:00 12:39:00 DIS Emergency GELY FOSTER DO [facility] ER FS FACIAL SWELLING [id number] 03/25/2019 04:32:00 04:58:00 DIS Emergency MODESTO CAMACHO MD [facility] ER FS TOOTH ABCESS [id number] 04/26/2020 13:34:[address] Emergency VICKIE CHRISTENSEN DO [facility] ER FS SUICIDAL; MIGRAINE [id number] 04/08/2019 11:15:00 Document Registration
--- NOTE | 2020-04-26 18:02 | NUR ---
Safety Plan received on fax machine. Dr Frazier updated and reviewed.
--- NOTE | 2020-04-26 18:15 | NUR ---
Patient has read Safety Plan and planned appointments scheduled. Pt verbalizes agreement and signed the contract.
[2020-04-26 18:27] VITALS: BP 165/112
--- NOTE | 2020-04-26 18:27 | NUR ---
Pt discharged at this time with review of home instructions and Safety Plan. Pt appears calm and less stressed. Pt smiling and reports she can show her family the information discussed.
== END 2020-04-26 18:27 | disposition home or self-care (01) ==
LOC: EDUNIT# 13:33 → ER FS 13:34
DX: F41.9 Anxiety disorder, unspecified (principal); F32.9 Major depressive disorder, single episode, unspecified; I10 Essential (primary) hypertension; F17.210 Nicotine dependence, cigarettes, uncomplicated; Z88.5 Allergy status to narcotic agent; Z88.8 Allergy status to other drugs, medicaments and biological substances
CPT/HCPCS: 36415; 80053; 80306; 80320; 80329; 81000; 84703; 85025; 93005; 93041; 96374; 96375

== ENCOUNTER → 2020-09-30 | Outpatient (CLI) | payer MEDICARE, MEDICAID ==
--- NOTE | 2020-09-30 11:18 | Diagnostic Imaging Report ---
EXAMINATION: Left foot at 10:40 a.m. INDICATION: Injury, foot pain. TECHNIQUE: Three views were obtained. COMPARISON: There are no prior studies available for comparison. FINDINGS: On the AP view, there is a thin calcific density bridging the Lisfranc joint. This could represent a small avulsion fracture, although the age of this injury is indeterminate. The Lisfranc joint itself does not seem to be widened there is also irregularity of the medial cortex of the 1st cuneiform. This does suggest a nondisplaced fracture.. CT would be recommended for further evaluation of the injuries to the midfoot. No other fracture or acute bony abnormality is noted. There is a small calcaneal spur and there is a calcified enthesophyte along the posterior aspect of the calcaneus near the insertion of the Achilles tendon. IMPRESSION: 1. The thin calcific density bridging the Lisfranc joint is suspicious for a small avulsion fracture. The age of this injury however is indeterminate. There also appears to be a nondisplaced fracture of the medial aspect of the 1st cuneiform. CT would be recommended for further evaluation. 2. There is no acute bony abnormality noted, otherwise. Dictated by: Dictated on workstation # [id number]
--- NOTE | 2020-09-30 11:19 | Diagnostic Imaging Report ---
Left ankle at 1039 hours. INDICATION: Injury, ankle pain. 3 views were obtained. There are no prior studies available for comparison. FINDINGS: On the oblique view, there are 2 or 3 fairly well-circumscribed calcific densities along the inferior margin of the medial malleolus. These calcific densities are more likely a sequela of prior trauma than due to an acute injury. Even so, clinical follow-up is recommended. No other fracture or acute bony abnormality is appreciated. The ankle mortise is not widened and the talar dome is smooth. There does seem to be soft tissue edema over the lateral malleolus. As noted on the left foot exam performed in conjunction with the study, there is slight irregularity of the medial cortex of the 1st cuneiform. This could be related to an acute nondisplaced fracture. IMPRESSION: 1. The small calcific densities along the inferior margin of the medial malleolus are more likely sequela of prior trauma than due to an acute abnormality. There is no acute bony abnormality of the ankle joint noted. 2. There is soft tissue edema over the lateral malleolus. Dictated by: Dictated on workstation # [id number]
== END ==
LOC: RAD FS 10:33
PROVIDERS: ATTEND Nurse Practitioner Family
DX: S99.922A Unspecified injury of left foot, initial encounter (principal); M25.572 Pain in left ankle and joints of left foot; X58.XXXA Exposure to other specified factors, initial encounter
CPT/HCPCS: 73610; 73630

== ENCOUNTER → 2020-10-18 | Outpatient (CLI) | payer MEDICARE, MEDICAID ==
--- NOTE | 2020-10-18 15:49 | Diagnostic Imaging Report ---
INDICATION: ACUTE LEFT ANKLE PAIN COMPARISON: 09/30/2020. FINDINGS: Three views of the left ankle were obtained. There is no acute fracture or dislocation. No focal osseous lesions are seen. The surrounding soft tissue structures are unremarkable. There are no radiopaque foreign bodies. IMPRESSION: 1. No acute fracture or dislocation in the left ankle. Dictated by: Dictated on workstation # [id number]
--- NOTE | 2020-10-18 16:16 | Diagnostic Imaging Report ---
INDICATION: Injury to left shoulder. TIME OF EXAM: 3:15 PM. TECHNIQUE: Two views of the left shoulder were obtained. FINDINGS: The glenohumeral and acromioclavicular alignment is normal. The acromiohumeral space is normal. No fracture or dislocation is seen. IMPRESSION: No acute abnormality is detected. Dictated by: Dictated on workstation # [id number]
== END ==
LOC: RAD FS 15:07
PROVIDERS: ATTEND Nurse Practitioner Family
DX: S49.92XA Unspecified injury of left shoulder and upper arm, initial encounter (principal); M25.572 Pain in left ankle and joints of left foot; X58.XXXA Exposure to other specified factors, initial encounter
CPT/HCPCS: 73030; 73610